=== PATIENT | male | born 1945 | race African-American/Black ===

== ENCOUNTER → 2017-08-07 | Outpatient (CLI) | payer OTHER | LOC: BMCIMAGING 11:29 | PROVIDERS: ATTEND Emergency Medicine | DX: M79.89 Other specified soft tissue disorders (principal) ==

== ENCOUNTER 2018-03-09 14:36 | Inpatient (IN) | payer OTHER ==
--- NOTE | 2018-03-09 15:04 | EDPHY ---
H & P Stated Complaint: Sent from w/low O2 and hematemesis Time Seen by Provider: 03/09/18 14:44 - Personal History Current Tetanus Diphtheria and Acellular Pertussis (TDAP): Yes - Medical/Surgical History Other PMH: HTN. sleep apnea - Social History Smoking Status: Never smoked Constitutional: Initial Vital Signs Temperature (C) 36.4 C 03/09/18 14:39 Heart Rate 68 03/09/18 14:39 Respiratory Rate 18 03/09/18 14:39 Blood Pressure 148/122 H 03/09/18 14:39 O2 Sat (%) 70 L 03/09/18 14:39 O2 Delivery Mode Oxymask O2 (L/minute) 10 Allergies/Adverse Reactions: Penicillins Allergy (Unknown, Verified 08/14/11 10:02) Home Medications: Medication Instructions Recorded Atenolol [Tenormin 50 mg (RX)] 50 mg PO DAILY 08/14/11 BENAZEPRIL HCL [Lotensin] 40 mg PO BID 08/14/11 Triamterene/Hctz 37.5/25 [Dyazide 1 each PO DAILY 08/14/11 37.5/25 (RX)] amLODIPine BESYLATE [Norvasc 10 mg 10 mg PO DAILY 08/14/11 (RX)] Medical Decision Making - Diagnostics Imaging Results: Imaging Impressions Chest X-Ray 03/09/18 15:08 Impression: Equivocal nodular airspace disease in the lower lung zones. Findings discussed with Emergency Department physician, Reji Miller MD at 03/09/2018 15:40. Plan is to proceed with CT of the chest with IV contrast optimally characterize. Chest/Thorax CTA 03/09/18 15:35 Impression:1. No pulmonary embolic disease. 2. Early or impending CHF with coronary artery disease. 3. Multiple liver lesions likely representing polycystic liver disease, assuming that the patient does not have a history of malignancy. If there is a history of malignancy then would recommend confirmation with ultrasound. 4. The nodularity on the lateral chest x-ray are predominantly related to blood vessels on end. There is one 6mm noncalcified nodule at the left lung base that is likely of little clinical significance. It may actually be subtly visible on an old chest x-ray in 2014. If there are any old outside chest CTs, we would be happy to review them to assess for interval change. Results discussed with Dr. Miller at 16:34 PM. General information for patients regarding this examination can be found at [email or web address]. If you have questions or comments about this report, please contact me at (hospital) or [phone] (cell). ED Course/Re-evaluation: CHIEF COMPLAINT: Coughing blood, hypoxemia, fatigue HISTORY OF PRESENT ILLNESS: The patient is a 72 y/o male complaining of coughing blood, hypoxemia, and fatigue. He first developed symptoms on and has worsened since. He reports he is coughing up bright red blood that is mixed with mucus. He denies recent nose bleeds. In triage his pulse ox was 70. His reports he has been more lethargic than normally, choosing to sleep most of the day. She reports he has last at least a few pounds in the past few days and hasn't been eating or drinking. He reports associated epigastric pain. He denies fever or any other associated symptoms. He denies using oxygen normally. REVIEW OF SYSTEMS: A 10 system review of systems was performed and is negative with the exception of the elements mentioned in the history of present illness. PHYSICAL EXAM: HR, BP, O2 Sat, RR. Temp noted General Appearance: Alert, appropriate. He is resting in the bed, allowing his to do much of the talking. Head: Atraumatic without scalp tenderness or obvious injury Eyes: Pupils equal, round, reactive to light and accommodation, EOMI, no trauma , no injection. Ears: Clear bilaterally, no perforation, normal landmarks Nose: Atraumatic, no rhinorrhea, clear. Throat: There is no erythema or exudates, no lesions, normal tonsils, mucus membranes moist. Neck: Supple, 2+ carotid upstroke, nontender, no lymphadenopathy. Respiratory: Decreased breath sounds in the left base. Course rhonchi throughout. Expiratory wheezing. No retractions, no distress, and no accessory muscle use. Cardiovascular: Regular rate and rhythm, no murmurs, rubs, or gallops. Bilateral carotid, radial, dorsalis pedis, and posterior tibial pulses intact. Good capillary refill all extremities. Gastrointestinal: Abdomen is soft, nontender, non-distended, no masses, no rebound, no guarding, no peritoneal signs. Musculoskeletal: Normal active ROM of all extremities, atraumatic. Neurological: Alert, appropriate, and interactive. Skin: No rashes, good turgor, no nodules on palpation. Past medical history: Sleep apnea, hypertension Past surgical history: Denies Family history: Non-contributory Social history: at bedside, just retired after 25 years with the [employer] office, lives in [place] DIAGNOSTICS/PROCEDURES/CRITICAL CARE TIME: Study: PA and Lateral Chest X-ray Indication: Coughing blood Results: After viewing the images myself on the PACS system. My interpretation of the images is: abnormal vascular opacity The radiologist interpretation is in agreement. Study: CT of the chest Indication: Abnormal chest x-ray Results: CT scan of the body parts was obtained. The results of the study are indicative of CHF. The study was read by the radiologist, Dr. Centeno. DIFFERENTIAL DIAGNOSIS: The differential diagnosis for this patient's condition includes but is not limited to pneumonia, PE, cancer, and CHF. MEDICAL DECISION MAKING: The patient is coughing blood, weak, and losing weight. His pulse ox is quite low at 70 without oxygen. He is normally not oxygen dependant. Plan for labs including CBC, basic metabolic panel, d-dimer, coagulation panel, lactic acid, blood cultures, EKG and chest X-ray. 15:40 - Chest X-ray showed abnormal vascular opacity. Plan for CT to evaluate. Sputum sent for culture. Sputum is bright red blood in small amounts. 16:00 - CT shows CHF. Plan for BNP. 17:30 - BNP is slightly elevated. I spoke with Dr. Vanessa Hawkins, cardiology, regarding this patient. She agrees to consult. He will be given Lasix to try and raise his pulse ox. He will be admitted for further care. He and his agree to this course of action. - Data Points Laboratory Results: Laboratory Results 03/09/18 15:05 03/09/18 15:05 03/09/18 03/09/18 03/09/18 16:58 15:05 15:05 WBC RBC Hgb Hct MCV MCH MCHC RDW Plt Count MPV Neut % (Auto) Lymph % (Auto) [place] % (Auto) Eos % (Auto) Baso % (Auto) Nucleat RBC Rel Count Absolute Neuts (auto) Absolute Lymphs (auto) Absolute Monos (auto) Absolute Eos (auto) Absolute Basos (auto) Absolute Nucleated RBC Immature Gran % Immature Gran # PT 13.9 SEC SEC (12.0-15.0) INR 1.05 (0.83-1.16) APTT 30.5 SEC SEC (23.0-38.0) VBG Lactic Acid Sodium Potassium Chloride Carbon Dioxide Anion Gap BUN Creatinine Estimated GFR Glucose Calcium Total Bilirubin POC Troponin I 0.04 ng/mL ng/mL (0.00-0.08) NT-Pro-B Natriuret Pep 913 pg/mL H pg/mL (0-125) 03/09/18 03/09/18 03/09/18 15:05 15:05 15:05 WBC 8.15 10^3/uL 10^3/uL (3.80-9.50) RBC 5.47 10^6/uL 10^6/uL (4.40-6.38) Hgb 15.4 g/dL g/dL (13.7-17.5) Hct 44.1 % % (40.0-51.0) MCV 80.6 fL L fL (81.5-99.8) MCH 28.2 pg pg (27.9-34.1) MCHC 34.9 g/dL g/dL (32.4-36.7) RDW 14.2 % % (11.5-15.2) Plt Count 230 10^3/uL 10^3/uL (150-400) MPV 9.7 fL fL (8.7-11.7) Neut % (Auto) 78.0 % H % (39.3-74.2) Lymph % (Auto) 12.9 % L % (15.0-45.0) [place] % (Auto) 6.4 % % (4.5-13.0) Eos % (Auto) 0.0 % L % (0.6-7.6) Baso % (Auto) 0.5 % % (0.3-1.7) Nucleat RBC Rel Count 1.0 % H % (0.0-0.2) Absolute Neuts (auto) 6.36 10^3/uL 10^3/uL (1.70-6.50) Absolute Lymphs (auto) 1.05 10^3/uL 10^3/uL (1.00-3.00) Absolute Monos (auto) 0.52 10^3/uL 10^3/uL (0.30-0.80) Absolute Eos (auto) 0.00 10^3/uL L 10^3/uL (0.03-0.40) Absolute Basos (auto) 0.04 10^3/uL 10^3/uL (0.02-0.10) Absolute Nucleated RBC 0.08 10^3/uL H 10^3/uL (0-0.01) Immature Gran % 2.2 % H % (0.0-1.1) Immature Gran # 0.18 10^3/uL H 10^3/uL (0.00-0.10) PT INR APTT VBG Lactic Acid 1.4 mmol/L mmol/L (0.7-2.1) Sodium 134 mEq/L L mEq/L (135-145) Potassium 3.1 mEq/L L mEq/L (3.5-5.2) Chloride 103 mEq/L mEq/L (97-110) Carbon Dioxide 22 mEq/l mEq/l (22-31) Anion Gap 9 mEq/L mEq/L (6-14) BUN 20 mg/dL mg/dL (7-23) Creatinine 1.4 mg/dL H mg/dL (0.7-1.3) Estimated GFR 50 Glucose 125 mg/dL H mg/dL (70-100) Calcium 8.4 mg/dL L mg/dL (8.5-10.4) Total Bilirubin 1.3 mg/dL mg/dL (0.1-1.4) POC Troponin I NT-Pro-B Natriuret Pep Medications Given: Discontinued Medications Furosemide (Lasix Injection) 20 mg IVP EDNOW ONE Stop: 03/09/18 17:33 Last Admin: 03/09/18 17:43 Dose: 20 mg Sodium Chloride (Ns) 1,000 mls @ 0 mls/hr IV ONCE ONE PRN Reason: Wide Open Stop: 03/09/18 15:43 Last Admin: 03/09/18 15:43 Dose: 1,000 mls Ipratropium [place] (Atrovent Neb) 0.5 mg IH EDNOW ONE Stop: 03/09/18 15:36 Last Admin: 03/09/18 15:44 Dose: 0.5 mg Point of Care Test Results: Chemistry 03/09/18 16:58 POC Troponin I 0.04 ng/mL ng/mL (0.00-0.08) Departure - Departure Disposition: [facility] Inpatient Acute Clinical Impression: Coughing up blood Fatigue Qualifiers: Fatigue type: other Qualified Code(s): R53.83 - Other fatigue CHF (congestive heart failure) Qualifiers: Heart failure type: unspecified Heart failure chronicity: unspecified Qualified Code(s): I50.9 - Heart failure, unspecified Condition: Fair Referrals: Rebecca Lafleur MD [Primary Care Provider] - As per Instructions Report Scribed for: Reji Miller Report Scribed by: Jimena Munoz Date of Report: 03/09/18 Time of Report: 17:08
[2018-03-09 15:17] LABS: PLATELET COUNT 230 10^3/uL (150-400)
[2018-03-09 15:26] LABS: INR 1.05 (0.83-1.16); PROTIME(PATIENT) 13.9 SEC (12.0-15.0)
[2018-03-09] MEDS ORDERED: IPRATROPIUM BROMIDE 0.5 MG/2.5 ML DEYVIAL IH ONE (15:35)
[2018-03-09] MEDS ORDERED: IOPAMIDOL (ISOVUE 370) 100 ML BTL IV ONE (15:42)
[2018-03-09] MEDS ORDERED: NS 1,000 ML IV ONE (15:42)
[2018-03-09] MEDS ORDERED: FUROSEMIDE 20 MG/2 ML VIAL IVP ONE (17:32)
[2018-03-09] MEDS ORDERED: ONDANSETRON 4 MG/2 ML VIAL IVP PRN (19:13)
[2018-03-09] MEDS ORDERED: ACETAMINOPHEN 325 MG TAB PO PRN (19:13)
[2018-03-09] MEDS ORDERED: ZOLPIDEM TARTRATE 5 MG TAB PO PRN (19:13)
--- NOTE | 2018-03-09 19:31 | PDGENHP ---
History and Physical History and Physical: CC: Cough and fatigue with hemoptysis HISTORY: This patient who is 72 years old and just retired a few days ago after working for the [employer] comes to the ER complaining of several days of fatigue, cough with sputum stain with mild blood, and decreased appetite. He does not think he has noticed specifically shortness of breath but he has been quite inactive mostly lying in bed at home. He denies any kind of chest pain and does not think he has had fevers. He is not nauseous but has no appetite. No muscle aches or myalgias or joint pains. No headache. He has not noticed any pain or swelling in his legs, any pleuritic pain, The patient has a history of sleep apnea diagnosed several years ago and has been using nightly CPAP ever since then. He did have hypoxemia it sounds like during the daytime, but it is unclear to me whether he has really been assessed for ongoing daytime hypoxemia since that time. He has never been a smoker, never diagnosed with asthma, never had symptomatic dyspnea that he is aware of or breathing issues that interfered with activities. His father did smoke until the patient was age 7. He has no other significant lung exposures. He has not been diagnosed with any heart problems that he is aware of though he was seen by a gas turbine mechanic for reasons he does not recall many years ago. He does not recall being told there was any problem and did not receive any treatment or instructions for cardiac follow-up. He does think he was told that he had a enlarged heart when he was in his 20s but no follow-up for that and no problems with that. 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 I have reviewed the list and ordered appropriate medicines. PHYSICAL EXAMINATION: Vital Signs: Mildly hypertensive otherwise normal vitals were recorded in the ER without fever. At the moment on my exam the patient is tachypneic with somewhat labored respirations on oxygen Oxygen monitoring: He was at 70% on room air oxygen and is at 90% using 10 L by OxyMask at this time Occupational Therapist Assistants: Sinus rhythm Examination: General: alert, oriented, good mentation, relaxed Skin: warm, dry, good color, no rash HEENT: normal Neck: no mass or jvd Resps: relaxed Lungs: clear breath sounds Heart: regular, no murmur Abdomen: soft, nondistended, nontender, +BS, no mass Upper Extremities: normal Lower Extremities: no edema, warm No Bleeding or bruising Neurologic: normal speech/language, normal sizing machine tender, no focal weakness IV site: looks normal LABORATORY DATA: Troponin 0.04 On metabolic panel he has a potassium of 3.1, creatinine 1.4 which is his baseline CBC shows borderline microcytosis at 80.6 which is new for him, and mildly elevated nucleated red blood cells which is also new RADIOLOGY STUDIES: I reviewed images from a CT scan of the chest was done in the ER this evening with contrast. There is no PE, and the cardiac silhouette does not appear particularly abnormal. There is some very mild bibasilar atelectasis and minimal left pleural effusion. There is a very subtle hazy density diffusely in the central portion of the mid lung, and I am not certain as to the etiology or significance of this at the present time. It does not appear severe enough to be the cause of his significant hypoxemia. Notably there 12 LEAD EKG: I reviewed tracing from the ER EKG which shows sinus rhythm with an otherwise normal EKG ASSESSMENT: * Acute hypoxemic respiratory failure (unclear what his chronic oxygenation status is, see below) -etiology currently uncertain * Acute cough productive of sputum with some low volume hemoptysis associated * Chronic sleep apnea on nightly CPAP * New finding of microcytosis and nucleated red blood cells on his CBC tonight, but not anemic -cause of either of these is not clear * Hypokalemia likely related to use of diuretic * Multiple hypodensities in liver seen on CT scanning of uncertain etiology, further imaging will be helpful; at the moment I do not have a specific way to relate this to his presenting symptoms * Chronic kidney disease stable creatinine at his baseline The patient mentions to me that years ago when he was diagnosed with sleep apnea he was found to be hypoxemic in the physician's office. He is not aware of what his oxygen levels have measured since that time and does not have a pulse oximeter at home. It is hard to tell how much new hypoxemia has. However at this time he clearly has significant hypoxemia and acute dyspnea and tachypnea with cough and hemoptysis. CT scan does not clearly show the etiology of this. The radiologist reading is that there may be early CHF, and looking at the right lung on CT I would agree there may be some very subtle perihilar haziness, but this is not severe enough to cause hypoxemia by itself if it is from heart failure. The finding of nucleated red blood cells could be due to chronic hypoxemia. The patient has chronic oxygen levels are unknown but he did apparently have oxygen tested low at 1 point in the past some years ago. The patient however does not have chronic dyspnea and does not have an identifiable reason to have chronic hypoxemia at this time. Another possible cause for nucleated red blood cells would be some type of marrow disorder, but there is no specific evidence of that now. PLANS: * Inpatient admission for management of stay hypoxemic respiratory failure as well as diagnostic assessments * Pulmonary and cardiology consultations * Echocardiogram * Pulmonary function testing * Iron and ferritin studies * Arterial blood gas * He was given 1 L of normal saline followed by a dose of Lasix in the emergency room. Will follow to make sure he is at least having a response to the Lasix but will not order more of either of those for now * Continue his usual medications for blood pressure at this time * Potassium replacement by protocol and check magnesium level * Continue CPAP while he is here * Will review his CT scan further with Radiology, suspect MRI will be the most useful imaging to further assess his liver lesions, though ultrasound could also be helpful; * Trying get records from [facility] regarding oxygen levels and his prior cardiac evaluation I have reviewed the patient's case in detail with Dr. Migue Centeno I have requested past medical records from the [facility] including cardiology consultation notes and any echocardiogram if available, as well as vital signs to include oxygen levels from his last few visits
[2018-03-09] MEDS ORDERED: PROTOCOL POTASSIUM 1 DOSE MISC PRN (19:56)
[2018-03-09] MEDS ORDERED: POTASSIUM CL 10 MEQ TAB PO ONE (20:31)
--- NOTE | 2018-03-09 20:35 | CPEKG ---
Test Reason : OPEN Blood Pressure : / mmHG Vent. Rate : 066 BPM Atrial Rate : 066 BPM P-R Int : 177 ms QRS Dur : 100 ms QT Int : 437 ms P-R-T Axes : 051 046 032 degrees QTc Int : 458 ms Sinus rhythm Borderline T wave abnormalities Confirmed by Reji Miller ([id number]) on 03/09/2018 8:34:58 PM Referred By: Confirmed By:Reji Miller
[2018-03-09] MEDS: MELATONIN 3 MG TAB PO SCH (20:45)
--- NOTE | 2018-03-09 23:54 | PDMN ---
Medical Necessity Medical necessity: Pt meets IP criteria as of 03/09/2018 per and [facility] MG-PUL ( pulmonary disease); est los > 2 mn for ongoing tx and management of acute hypoxemic respiratory failure (70% RA) with unclear etiology as well as cough with hemoptysis, hypokalemia and liver abnormalities noted on imaging; requiring further work up, respiratory support, and electrolyte protocol.
[2018-03-10 04:41] LABS: PLATELET COUNT 202 10^3/uL (150-400)
--- NOTE | 2018-03-10 07:25 | GCON ---
CARDIOLOGY CONSULT CHIEF COMPLAINT: Shortness of breath. HISTORY OF PRESENTING ILLNESS: This is a 72-year-old male with a history of obstructive sleep apnea, who presents to the emergency room with several days complaints of fatigue, cough with red colored s putum and decreased appetite. The patient denies chest pain, though he indicates that his fatigue an d shortness of breath has been progressing considerably over the last few days. Currently the patien t is on oxygen and does indicate feeling short of breath with minimal exertion, [facility]. He denies any lower extremity swelling, abdominal swelling, or any recent fevers. He has not seen a correspondence transcriber in a number of years, but has been actively using his nightly CPAP. Apparently, he did indicate having a history of "enlarged heart" years ago. However, he has not had significant followup, nor are there records available currently to review this matter. Blood pressure and heart rate are currently stable. ECG shows sinus rhythm with no acute ST changes. BNP was elevated at 91 3, but troponins were normal. The patient was administered Lasix and IV fluid in the emergency room and currently his creatinine improved from 1.4-1.1; however, again he still indicates having the shor tness of breath. PAST MEDICAL HISTORY: Significant for sleep apnea, hypertension. HOME MEDICATIONS: Please see patient's attached chart. FAMILY HISTORY: Patient denies any significant past family history. SOCIAL HISTORY: Apparently has just retired from the [employer]. He is currently . No tobacco use. No significant alcohol use. No recent drug use. REVIEW OF SYSTEMS: Patient currently denies any visual changes. No headache. No neck pain. No ear pain. No throat pain. No shoulder pain. No back pain. No chest pain. No abdominal discomfort. No lower extremity pain. He does indicate having moderate dyspnea with minimal exertion. PHYSICAL EXAM: VITAL SIGNS: Patient afebrile , blood pressure is currently 140/70 with a heart rate of 72, respiratory rate is 12, satting 95% on 4 L face mask. LUNGS: Clear to auscultatio n bilaterally. ABDOMEN: Soft, nontender. No guarding. CARDIAC: Same, is regular rate and rhythm, S1, S2. There is a soft 2/6 systolic murmur best at the right upper sternal border. EXTREMITIES: There is no clubbing, no cyanosis. No edema in lower extremities. NEURO: The patient is alert and oriented x3. LABORATORY VALUES: Currently show a sodium of 136, potassium of , chloride 106, bicarb 22, creatinine 1.1. BNP 913. Troponin 0.04. Hemoglobin 13.3, platelets of 202, white blood cell count 6.3. CTA of the chest performed in the emergency room showed LAD artery calcification with bilatera l pleural effusions/cardiomegaly, incidental lung nodules noted as well, as well as cystic disease of the liver. ASSESSMENT/PLAN: Shortness of breath. At this time, the patient still appears to have significant d yspnea. We will check a lower extremity venous ultrasound to rule out any potential of DVT given the patient's continued symptoms. We will also repeat a chest x-ray, compare it to the one performed 12 hours ago and check an echocardiogram. If the patient's shortness of breath should progress, obviou sly additional doses of Lasix can be given as the patient does not appear to be infectious at this po int given his afebrile status, as well as normal white count. We will continue to follow along with you. Thank for the consultation. /[id number]/MODL
[2018-03-10] MEDS ORDERED: POTASSIUM CL 10 MEQ TAB PO ONE ×2 (08:23→19:29)
[2018-03-10] MEDS: BENAZEPRIL HCL 20 MG TAB PO SCH (09:13)
--- NOTE | 2018-03-10 09:34 | ASMTCMCOM ---
CM Note CM Note Notes: Patient admitted with hypoxemia and hemoptysis. Workup for CHF pending. He is normally independent - newly retired, lives with , and independent in ADLs. No discharge needs identified. Date Signed: 03/10/2018 09:33 AM Electronically Signed By:Olivia Hernandez RN
[2018-03-10] MEDS: TRIAMTERENE/HCTZ 37.5/25 1 EACH CAP PO SCH (10:46)
[2018-03-10] MEDS: ATENOLOL 50 MG TAB PO SCH (10:47)
--- NOTE | 2018-03-10 11:05 | ECHO ---
[email or web address] [address] [address] Main: [phone] Fax: Transthoracic Echocardiogram Name: WALE LOVE MR#: [id number] Study Date: 03/10/2018 Study Time: 10:10 AM Date of : 1945 Age: 72 year(s) Height: 165.1 cm (65 in.) Weight: 68.04 kg (150 lb.) BSA: 1.75 m2 Gender: Male Examination: Echo Indication: Unexplained hypoxemia/history of sleep apnea/hemoptysis Image Quality: Contrast: Requested by: Diogenes Donahue BP: 139 mmHg/87 mmHg Heart Rate: Rhythm: Indication: Unexplained hypoxemia/history of sleep apnea/hemoptysis Procedure Staff Associate Chemist: Jeanette Nieves [facility] Reading Physician: Louis Bran MD Requesting Provider: Conclusions: Normal global systolic LV function. The ejection fraction is estimated to be 65-70 %. Mildly to moderately dilated right ventricle. Mild mitral valve regurgitation is present. Mild to moderate tricuspid valve regurgitation. The pulmonary artery pressure is moderately to severely increased. RVSP is 71mmHG. . No pericardial effusion. Measurements: Chambers Valvular Assessment AV/MV Valvular Assessment TV/PV Normal Normal Normal Name Value Range Name Value Range Name Value Range Ao Yolanda (MM): 3.7 cm (2.2 cm-3.7 AV Vmax: 1.52 m/s (1 m/s-1.7 TR Vmax: 3.91 mm/s ( - ) cm) m/s) TR PGmax: 61 mmHg ( - ) IVSd (2D): 0.8 cm (0.6 cm-1.1 AV meanP mmHg ( - ) syst. PAP: 71 mmHg ( - ) cm) MV E Vmax: 0.59 m/s ( - ) LVDd (2D): 5.0 cm (4.2 cm-5.9 MV A Vmax: 0.90 m/s ( - ) cm) MV E/A: 0.66 ( - ) LVDs (2D): 3.0 cm (2.1 cm-4 cm) LVPWd (2D): 0.6 cm (0.6 cm-1 cm) LVEF (BP): 71 % (>=55 %) EF Range: 65-70 % Continued Measurements: Chambers Valvular Assessment AV/MV Valvular Assessment TV/PV Patient: WALE LOVE Study Date: 03/10/2018 Page 1 of 2 10:10 AM Name Value Name Value Name Value LADs: 3.2 cm MV E' Septal: 0.04 m/s CVP (est.): 10 mmHg LADs Lon.4 cm MV E/E' Septal: 13.50 LA Area: 10.9 cm2 MV E/E' Lateral: 8.70 Additional Vessels Name Value Ao Ascendin.9 cm Findings: Left Ventricle: Normal size left ventricle. No LV hypertrophy. Normal global systolic LV function. The ejection fraction is estimated to be 65-70 %. No regional wall motion abnormality. Normal diastolic LV function. Right Ventricle: Mildly to moderately dilated right ventricle. Left Atrium: The left atrium is normal in size. Right Atrium: The right atrium is mildly dilated. Mitral Valve: The mitral valve is normal in appearance and function. Mild mitral valve regurgitation is present. Aortic Valve: The aortic valve is normal in appearance and function. Tricuspid Valve: The tricuspid valve is normal in appearance and function. Mild to moderate tricuspid valve regurgitation. The pulmonary artery pressure is moderately to severely increased. RVSP is 71mmHG. . Pulmonic Valve: The pulmonic valve is normal in appearance and function. Trivial pulmonic valve regurgitation. Aorta: The aorta is normal. Pericardium: No pericardial effusion. (No Signature Object) Patient: WALE LOVE Study Date: 03/10/2018 Page 2 of 2 10:10 AM [id number]
--- NOTE | 2018-03-10 14:16 | HOSPPROG ---
Hospitalist Progress Note Assessment/Plan: ASSESSMENT: * Acute hypoxemic respiratory failure (unclear what his chronic oxygenation status is, see below) - Likely CHF * Acute cough productive of sputum with some low volume hemoptysis associated * Chronic sleep apnea on nightly CPAP * New finding of microcytosis and nucleated red blood cells on his CBC tonight, but not anemic -cause of either of these is not clear * Hypokalemia likely related to use of diuretic * Multiple hypodensities in liver seen on CT scanning of uncertain etiology, further imaging will be helpful; at the moment I do not have a specific way to relate this to his presenting symptoms * Chronic kidney disease stable creatinine at his baseline The patient mentions to me that years ago when he was diagnosed with sleep apnea he was found to be hypoxemic in the physician's office. He is not aware of what his oxygen levels have measured since that time and does not have a pulse oximeter at home. It is hard to tell how much new hypoxemia has. However at this time he clearly has significant hypoxemia and acute dyspnea and tachypnea with cough and hemoptysis. CT scan does not clearly show the etiology of this. The radiologist reading is that there may be early CHF, and looking at the right lung on CT I would agree there may be some very subtle perihilar haziness, but this is not severe enough to cause hypoxemia by itself if it is from heart failure. The finding of nucleated red blood cells could be due to chronic hypoxemia. The patient has chronic oxygen levels are unknown but he did apparently have oxygen tested low at 1 point in the past some years ago. The patient however does not have chronic dyspnea and does not have an identifiable reason to have chronic hypoxemia at this time. Another possible cause for nucleated red blood cells would be some type of marrow disorder, but there is no specific evidence of that now. PLANS: * Inpatient admission for management of stay hypoxemic respiratory failure as well as diagnostic assessments * Pulmonary and cardiology consultations * Echocardiogram * He was given 1 L of normal saline followed by a dose of Lasix in the emergency room. * Will give 20 mg IVP Lasix today * Continue his usual medications for blood pressure at this time * Potassium replacement by protocol and check magnesium level * Continue CPAP while he is here * Will review his CT scan further with Radiology, suspect MRI will be the most useful imaging to further assess his liver lesions, though ultrasound could also be helpful * Trying get records from [facility] regarding oxygen levels and his prior cardiac evaluation Subjective: Patient reports improvement in cough Objective: Vital Signs Temp Pulse Resp BP Pulse Ox 36.2 C 72 14 129/88 H 97 03/10/18 10:58 03/10/18 10:58 03/10/18 10:58 03/10/18 10:58 03/10/18 10:58 Laboratory Results 03/10/18 03:56 03/10/18 03:56 03/09/18 03/10/18 03/11/18 05:59 05:59 05:59 Intake Total 1260 Output Total 600 Balance 1260 -600 PT 13.9 SEC (12.0-15.0) 03/09/18 15:05 INR 1.05 (0.83-1.16) 03/09/18 15:05 - Physical Exam Constitutional: chronically ill appearing Eyes: PERRL Ears, Nose, Mouth, Throat: moist mucous membranes Cardiovascular: regular rate and rhythym Respiratory: no respiratory distress Gastrointestinal: soft, non-tender abdomen Skin: warm Neurologic: AAOx3 Psychiatric: interacting appropriately ICD10 Worksheet Patient Problems: Problems Problem Status Onset CHF (congestive heart failure) Acute Coughing up blood Acute Fatigue Acute
[2018-03-10] MEDS: FUROSEMIDE 20 MG/2 ML VIAL IVP SCH (14:49)
[2018-03-10] MEDS ORDERED: ALBUTEROL 3 ML DEYVIAL ONE (14:52)
--- NOTE | 2018-03-10 16:37 | GCON ---
PULMONARY CONSULTATION DATE OF CONSULTATION: 03/10/2018 REFERRING PHYSICIAN: Diogenes Donahue MD REASON FOR REFERRAL: Evaluation and management of cough with hemoptysis and pulmonary infiltrates. HISTORY: Mr. Corrales is a 72-year-old male who denies any prior respiratory problems. He was in his usual state of good health when he retired 6 days ago from the [employer], including a long workday on the day that he retired. The next day he was quite tired/fatigued, and rested most of day. The day after that, 4 days ago, he had the onset of a cough that was productive of blood-ting ed sputum. This cough occurs very frequently throughout the day and has persisted. He denies any dy spnea, but has not been particularly active. He feels a bit fatigued. He denies any chest pain, fev ers, chills or sweats. He has not had any myalgias. [facility] and was found to have hypoxemia, with saturations in the 70s. These have responded to the addition of supplemental oxygen. PAST MEDICAL HISTORY: 1. Obstructive sleep apnea. This was diagnosed about 2-1/2 years ago. The patient was placed on CP AP and uses it nightly. His states that about a year and a half ago for some reason, he was put on nocturnal oxygen for a few weeks, but then this was stopped. He has never used oxygen during the day. 2. Hypertension. MEDICATIONS: Include triamterene/hydrochlorothiazide, benazepril, atenolol, amlodipine. ALLERGIES: Penicillin. SOCIAL HISTORY: The patient just retired from the [employer]. He denies alcohol or tobacc o use. [place] [address] [place]. FAMILY HISTORY: Unremarkable. REVIEW OF SYSTEMS: A 10-point review of systems adds nothing to the history of present illness. PHYSICAL EXAMINATION: GENERAL: The patient is awake and alert. He is in no acute distress. Blood pressure is 141/84 with a heart rate of 85. He is afebrile. Oxygen saturations are 97% on 5 L and 9 3% on room air. HEENT: Normocephalic and atraumatic. No icterus. NECK: No adenopathy. Trachea i s midline. CHEST: Clear to auscultation. CARDIAC: Regular rate and rhythm without murmur. ABDOMEN : Soft, nontender. Bowel sounds are present. EXTREMITIES: No clubbing, cyanosis, or edema. NEURO : The patient is awake and alert. There are no gross motor or sensory deficits. LABORATORY: White blood count is 6.4. Hemoglobin is 13.3, down from 15.4. Chemistry group is unrem arkable. A procalcitonin is 0.19. A BNP is 913. Troponins are negative. An arterial blood gas freddy ws a pH of 7.55 with a pO2 of 69, and CO2 of 23 and a bicarbonate of 21 on 4.5 L of supplemental oxyg en. Nasal swab is negative for influenza. The respiratory panel swab is negative as well. A CT sca n of the chest shows no pulmonary emboli. There is an alveolar infiltrate in the mid lung/upper lobe s bilaterally that could represent pulmonary edema or pneumonitis. There is a 6 mm noncalcified lung nodule in the lateral left lung base. There are multiple liver lesions suggesting polycystic liver disease. IMAGES REVIEWED BY ME: An echocardiogram demonstrated an ejection fraction of 65% to 70% with a mild ly to moderately dilated right ventricle. There is no significant valvular disease. Pulmonary arter y pressure is estimated at 71 mmHg. Ultrasounds of both lower extremities are negative. ASSESSMENT: 1. Cough with hemoptysis. This is likely related to the alveolar infiltrates. Possible causes incl ude pneumonitis (although panel for typical infectious causes of pneumonitis is negative), congestive heart failure, or alveolar hemorrhage, although the findings do not have the typical patchy appearan ce of primary alveolar hemorrhage. The patient does not have any other signs or symptoms of infectio n such as fever or elevated white blood count. 2. Pulmonary hypertension. This is fairly severe. This could be due to chronic hypoxemia related t o the patient's living altitude. Although the patient reports good compliance with continuous positi ve airway pressure, it is not clear to me that this current continuous positive airway pressure setti ngs are effective at controlling his respiratory events. RECOMMENDATIONS: 1. Get PFTs. 2. Agree with Lasix. 3. Serologies will be ordered for potential connective disease causes of alveolar hemorrhage. 4. The patient will likely need a right heart catheterization. If the left heart catheterization is planned to evaluate the patient's cardiac status, this could be done at that same time. Otherwise, a right heart catheterization could be done as part of an outpatient evaluation for the patient's pul monary hypertension. 5. Adequate oxygenation, both during the day and during the night, and it will need to be assured du ring the hospital and once the patient is discharged to his home altitude of 8000 [place]. /[id number]/MODL
[2018-03-10] MEDS: MELATONIN 3 MG TAB PO SCH (19:58)
[2018-03-11] MEDS ORDERED: POTASSIUM CL 10 MEQ TAB PO ONE (07:28)
--- NOTE | 2018-03-11 08:03 | PDCARPN ---
Cardiology Progress Note Chief Complaint: SOB Assessment/Plan: Assessment: SOB pulmonary HTN Plan: 03/11/18 08:00 Patient feels better today Echo shows NL LVEF, but evidence of severe pulmonary HTN No indication for LHC at this time, RHC can be deferred as outpatient per pulmonary no evidence of thromboembolic disease Continue BP control, low dose lasix prn, pulmonary guidance Will follow as needed, please call with any questions Subjective: feels better Reviewed/Discussed With: multidisciplinary team Time Spent with Patient: greater than 25 minutes Time Spent with Patient: Greater than 25 minutes spent on this patients care, greater than 50% of time spent counseling, educating, and coordinating care regarding the above mentioned plan. Objective: Vital Signs (8 Hrs) Temp Pulse Resp BP Pulse Ox 03/11/18 03:45 36.4 C 58 L 15 132/87 H 96 Intake/Output (24 Hrs) 03/10/18 03/11/18 03/12/18 05:59 05:59 05:59 Intake Total 1260 1290 Output Total 2350 Balance 1260 -1060 Intake: Oral (ml) 1260 1290 Output: Urine (ml) 2350 Toilet 600 Urinal 1750 Other: Weight 66.5 kg 65.5 kg Number of Voids Toilet 3 Result Diagrams: 03/11/18 03:44 03/11/18 03:44 - Physical Exam Constitutional: no apparent distress Eyes: PERRL Ears, Nose, Mouth, Throat: moist mucous membranes Cardiovascular: regular rate and rhythm Peripheral Pulses: 1+: femoral (R), femoral (L) Respiratory: clear to auscultate bilat Gastrointestinal: normoactive bowel sounds Genitourinary: no suprapubic tenderness Skin: no rashes Musculoskeletal: no muscular tenderness Neurologic: AAOx3 Psychiatric: cooperative ICD10 Worksheet Patient Problems: Problems Problem Status Onset CHF (congestive heart failure) Acute Coughing up blood Acute Fatigue Acute
[2018-03-11] MEDS: BENAZEPRIL HCL 20 MG TAB PO SCH (08:13)
[2018-03-11] MEDS: TRIAMTERENE/HCTZ 37.5/25 1 EACH CAP PO SCH (08:14)
[2018-03-11] MEDS: FUROSEMIDE 20 MG/2 ML VIAL IVP SCH (08:14)
[2018-03-11] MEDS: ATENOLOL 50 MG TAB PO SCH (11:14)
--- NOTE | 2018-03-11 12:38 | PDHOMEO2F ---
Home Oxygen Face to Face Home Orders: I certify that a physician or a nurse practitioner or physician's microbiology lab assistant has had a [id number] encounter with this patient on the date of this order due to the diagnosis listed, which relates to the primary reason the patient requires home oxygen. Alternative treatments have been tried, or considered, and deemed ineffective. It is anticipated that supplemental oxygen will result in improvement with treatment. Home oxygen qualifying diagnosis: Pulmonary HTN Home oxygen secondary diagnosis: VIKY SpO2 on room air (%): 82 Frequency of home oxygen needed: continuous Home oxygen liters per minute: 2 Home oxygen delivery device: nasal cannula Concentrator: Yes E-tanks for mobility and back up: Yes If ordering portable O2, is the patient mobile in the home?: Yes I certify that, based on these findings, the home oxygen is medically necessary for this patient for the following length of time. Length of time home oxygen needed: 99 years
--- NOTE | 2018-03-11 15:43 | PDINTPN ---
Partner Management Consultant Progress Note Assessment/Plan: Assessment: Hemoptysis/alveolar infiltrates: Suspect these infiltrates are cardiogenic, although an inflammatory/autoimmune or infectious process are not excluded. He has had some slight improvement with diuresis. Serologic evaluation is pending. Obstructive sleep apnea: Severe. The patient is on either CPAP or BiPAP at home, and reports good compliance. His last data downloads ) from 2015) demonstrated a mild residual frequency of respiratory events but good compliance. However, it is unclear if his oxygenation is adequate. Pulmonary hypertension: Severe based on echo from this hospitalization. He apparently was diagnosed with this several years ago based on outpatient note, although I do not have the original study which was used to diagnose the pulmonary hypertension. Hypoxemia with exertion and/or sleep could be a significant contributor. Plan: Discharged on Lasix as well as continue with supplemental oxygen. Will need to ensure adequate oxygenation at all times in order to start to address the pulmonary hypertension. All see the patient back in 1-2 weeks. At that time a CT chest x-ray and data download from his CPAP device will be reviewed. Will consider further evaluation for pulmonary hypertension at that point. 03/11/18 15:40 03/11/18 15:43 Subjective: Cough/hemoptysis slightly better. Denies dyspnea. Objective: Vital Signs Temp Pulse Resp BP Pulse Ox 36.4 C 66 16 113/81 H 94 03/11/18 11:48 03/11/18 13:19 03/11/18 11:48 03/11/18 11:48 03/11/18 11:48 Laboratory Results 03/11/18 03:44 03/11/18 03:44 03/10/18 03/11/18 03/12/18 05:59 05:59 05:59 Intake Total 1260 1290 Output Total 2350 Balance 1260 -1060 PT 13.9 SEC (12.0-15.0) 03/09/18 15:05 INR 1.05 (0.83-1.16) 03/09/18 15:05 Physical Exam - Physical Exam General Appearance: alert, no apparent distress EENT: normal ENT inspection Neck: normal inspection Respiratory: lungs clear, normal breath sounds Cardiac/Chest: regular rate, rhythm, No edema Abdomen: normal bowel sounds, non-tender Skin: normal color, warm/dry Extremities: normal inspection Neuro/Psych: alert, normal mood/affect, oriented x 3 ICD10 Worksheet Patient Problems: Problems Problem Status Onset CHF (congestive heart failure) Acute Coughing up blood Acute Fatigue Acute
--- NOTE | 2018-03-11 16:12 | PDDCSUM ---
Discharge Summary Discharge Summary: Date of Admission: 03/09/2018 Date of Discharge: 03/11/2018 Consults: Cardiology, Pulmonology Procedures: TTE, CTA Followup: Cardiology, PCP, Pulmonology Hospital Course Problem List: ASSESSMENT: * Acute hypoxemic respiratory failure (unclear what his chronic oxygenation status is, see below) - Pulmonary HTN * Acute cough productive of sputum with some low volume hemoptysis associated * Chronic sleep apnea on nightly CPAP * New finding of microcytosis and nucleated red blood cells on his CBC tonight, but not anemic Hypokalemia likely related to use of diuretic * Multiple hypodensities in liver seen on CT scanning of uncertain etiology, further imaging will be helpful; at the moment I do not have a specific way to relate this to his presenting symptoms * Chronic kidney disease stable creatinine at his baseline PLANS: * Pulmonary and cardiology consultations- f/u as outpatient for RHC, further evaluation and management of Pulmonary HTN * S/p IVP Lasix, transitioned to PO Lasix prior to d/c * Continue home medications for blood pressure at this time * Potassium replacement by protocol * Continue CPAP * Will review his CT scan further with Radiology, suspect MRI will be the most useful imaging to further assess his liver lesions, though ultrasound could also be helpful as outpatient Time spent on discharge was >35 minutes with >50% of time spent on patient education and counseling.
[2018-03-11 16:22] VITALS: BP 136/90
[2018-03-12] MEDS ORDERED: FUROSEMIDE 20 MG TAB PO SCH (09:00)
== END 2018-03-11 17:31 | disposition home or self-care (01) | DRG 189 ==
LOC: F2W 18:00 → OBSVTOIN 19:13
PROVIDERS: ADMIT Internal Medicine; ATTEND Internal Medicine
DX: J96.01 Acute respiratory failure with hypoxia (principal); I27.20 Pulmonary hypertension, unspecified; G47.33 Obstructive sleep apnea (adult) (pediatric); E87.6 Hypokalemia; I12.9 Hypertensive chronic kidney disease with stage 1 through stage 4 chronic kidney disease, or unspecified chronic kidney disease; N18.9 Chronic kidney disease, unspecified
CPT/HCPCS: 83520-90; 84484-ER; 86162-90; 96374; 97161-GP; C8924; G8978-GP-CI; G8979-GP-CI; G8980-GP-CI; J1940; J7613; Q9967

== ENCOUNTER → 2018-03-24 | Outpatient (CLI) | payer OTHER | LOC: FIMAGING 11:57 | PROVIDERS: ATTEND Internal Medicine Critical Care Medicine | DX: G47.33 Obstructive sleep apnea (adult) (pediatric) (principal); I27.20 Pulmonary hypertension, unspecified; R04.2 Hemoptysis; I51.7 Cardiomegaly ==